=== PATIENT | male | born 1995 | race Two or more races ===

== ENCOUNTER 2023-05-26 00:04 | Emergency (ER) | payer OTHER ==
[2023-05-26] MEDS ORDERED: HYDROmorphone 0.5 MG/0.5 ML Syringe IVPUSH ONE (00:20)
[2023-05-26] MEDS ORDERED: Ondansetron 4 MG/2 ML SDV IVPUSH ONE (00:20)
[2023-05-26] MEDS ORDERED: Diphtheria,Pertussis(Acell),Tetanus Vaccine 0.5 ML Syringe IM ONE (00:30)
[2023-05-26] MEDS ORDERED: Silver Sulfadiazine 1% Crm 50 GM Tube TOP ONE (00:42)
== END 2023-05-26 01:20 | disposition home or self-care (01) ==
LOC: JD.ED 00:04
DX: T23.202A Burn of second degree of left hand, unspecified site, initial encounter (principal); T23.272A Burn of second degree of left wrist, initial encounter; T22.20XA Burn of second degree of shoulder and upper limb, except wrist and hand, unspecified site, initial encounter; T21.25XA Burn of second degree of buttock, initial encounter; Z23 Encounter for immunization; X11.8XXA Contact with other hot tap-water, initial encounter; Y92.89 Other specified places as the place of occurrence of the external cause; Y99.0 Civilian activity done for income or pay
CPT/HCPCS: 16020; 90471; 90715; 96374; 96375; 99283; A9270; J1170; J2405

== ENCOUNTER 2023-11-14 10:59 | Emergency (ER) | payer OTHER | END 2023-11-14 11:55 | disposition home or self-care (01) | LOC: JD.ED 10:59 | DX: S70.12XA Contusion of left thigh, initial encounter (principal); V57.5XXA Driver of pick-up truck or van injured in collision with fixed or stationary object in traffic accident, initial encounter; Y92.410 Unspecified street and highway as the place of occurrence of the external cause; Y99.0 Civilian activity done for income or pay | CPT/HCPCS: 99283 ==